=== PATIENT | male | born 1980 | race Caucasian/White ===

== ENCOUNTER → 2017-09-19 | Emergency (ER) | payer OTHER ==
[~2017-09-19] VITALS: Ht 170.2 cm; Wt 81.6 kg
== END | disposition home or self-care (01) ==
LOC: ER 09:48
DX: R10.2 Pelvic and perineal pain (principal)

== ENCOUNTER 2017-10-07 09:06 | Day surgery (SDC) | payer OTHER ==
[2017-10-07] MEDS ORDERED: PERCOCET 5-3251 EACH PO (13:37)
[2017-10-07] MEDS ORDERED: ZOFRAN ODT4 MG PO (13:37)
[2017-10-07] MEDS ORDERED: MIRALAX17 GM PO (13:37)
[2017-10-07] MEDS ORDERED: NEURONTIN300 MG PO (13:37)
== END 2017-10-07 15:40 | disposition home or self-care (01) ==
LOC: CIR.AMB 09:06
DX: K40.90 Unilateral inguinal hernia, without obstruction or gangrene, not specified as recurrent (principal); D17.6 Benign lipomatous neoplasm of spermatic cord